=== PATIENT | male | born 1970 | race Caucasian/White ===

== ENCOUNTER → 2022-12-01 08:00 | Day surgery (SDC) | payer OTHER, SELFPAY ==
[2022-12-01] VITALS (10 sets, daily range): BP systolic 91–116; BP diastolic 53–77; PULSE 67–99; RESP 18; TEMP 36.2–36.6; O2SAT 95–99; BMI 30.7
[2022-12-01 08:31] LABS: Hematocrit 23.9 % (42.0-52.0); Hemoglobin 7.4 g/dL (11.7-16.6)
[2022-12-01] MEDS: acetaminophen 325 mg Tablet 650 MG PO (08:39)
[2022-12-01] MEDS: diphenhydrAMINE 25 mg Capsule PO (08:39)
[2022-12-01] MEDS: sodium chloride 0.9% 100 mL Bag 50 ML IV ×2 (11:14→13:03)
--- NOTE | 2022-12-01 14:55 | PC.NURSE ---
Pt received 2 units PRBC's as ordered. No reaction noted. Pt off unit via wheelchair to be taken home by via personal vehicle.
== END ==
PROVIDERS: Visit Provider Internal Medicine Medical Oncology
DX: C18.7 Malignant neoplasm of sigmoid colon (principal); D64.9 Anemia, unspecified; C78.7 Secondary malignant neoplasm of liver and intrahepatic bile duct; I26.99 Other pulmonary embolism without acute cor pulmonale; Z79.01 Long term (current) use of anticoagulants; K59.00 Constipation, unspecified; F32.89 Other specified depressive episodes; K76.82 Hepatic encephalopathy; Z79.899 Other long term (current) drug therapy
CPT/HCPCS: 36415; 36430; 85014; 85018; 86850; 86900; 86920; P9016